=== PATIENT | male | born 1975 | race Caucasian/White ===

== ENCOUNTER 2017-06-01 18:57 | Emergency (ER) | payer SELFPAY ==
[~2017-06-01] VITALS: Ht 180.3 cm; Wt 106.8 kg
[~2017-06-01 18:57] MED LIST: NO HOME MEDICATIONS
[2017-06-01 23:42] VITALS: BP 142/96; PULSE 97
== END 2017-06-01 23:44 | disposition home or self-care (01) ==
LOC: COL.ER 18:57
DX: T18.128A Food in esophagus causing other injury, initial encounter (principal); X58.XXXA Exposure to other specified factors, initial encounter
CPT/HCPCS: J1610; J2250; J3010; J7030

== ENCOUNTER 2018-05-11 10:16 | Emergency (ER) | payer SELFPAY ==
[~2018-05-11] VITALS: Ht 177.8 cm; Wt 85.5 kg
[2018-05-11 10:20] VITALS: TEMP 96.4
[2018-05-11 10:45] LABS: BASO # 0.1 (0.0-0.2); BASO % 0.5 % (0.0-2.0); EOS # 0.8 (0.0-0.7); EOS % 8.2 % (0-4.0); GRAN # 5.3 (1.4-6.5); GRAN % 54.7 % (42.2-75.2); HEMOGLOBIN 15.8 g/dl (13.5-18.0); LYMPH # 2.9 (1.2-3.4); LYMPH % 29.6 % (20.0-51.0); MEAN CELL VOLUME 87 fl (80.0-100.0); MEAN CORPUSCULAR HEMOGLOBIN 30 pg (27.0-31.0); MEAN CORPUSCULAR HGB CONC 34 g/dl (33.0-37.0); MEAN PLATELET VOLUME 9.9 fl (7.4-10.4); MONO # 0.7 (0.1-0.6); MONO % 6.8 % (1.7-9.3); PLATELET COUNT 273 K/mm3 (130-400); RED BLOOD COUNT 5.32 M/mm3 (4.20-5.60); REDCELL DISTRIBUTION WIDTH-CV 11.4 % (11.5-14.5)
[2018-05-11 10:57] LABS: CALCIUM 9.1 mg/dL (8.4-10.2); CREATININE, serum 1.17 mg/dL (0.66-1.25)
[2018-05-11 11:54] VITALS: BP 139/92; PULSE 106
== END 2018-05-11 12:10 | disposition short-term general hospital (02) ==
LOC: COL.ER 10:16
PROVIDERS: Emergency Medicine
DX: I60.9 Nontraumatic subarachnoid hemorrhage, unspecified (principal)
CPT/HCPCS: J0780; J1170; J3010; J7030; J7050

== ENCOUNTER 2020-10-29 09:08 | Emergency (ER) | payer SELFPAY ==
[~2020-10-29] VITALS: Ht 177.8 cm; Wt 102.3 kg
[2020-10-29 09:17] VITALS: TEMP 98.6
[2020-10-29] MEDS ORDERED: NORCO 325 MG-51 TAB PO (09:37)
[2020-10-29] MEDS ORDERED: AMOXICILLIN 8751 TAB PO (09:37)
[2020-10-29 09:44] VITALS: BP 165/112; PULSE 90
== END 2020-10-29 09:44 | disposition home or self-care (01) ==
LOC: COL.ER 09:08
DX: K04.7 Periapical abscess without sinus (principal); Z87.891 Personal history of nicotine dependence